=== PATIENT | female | born 2000 | race African-American/Black ===

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

== ENCOUNTER 2019-02-20 02:21 | Inpatient (IN) | payer OTHER ==
[2019-02-20 02:51] VITALS: BMI 24.9
[2019-02-20] MEDS ORDERED: Fentanyl 4 mcg/Bup 0.1% Cadd 100 ML ONE (03:19)
[2019-02-20 03:33] LABS: Hemoglobin 9.1 g/dL (12.0-16.0); Mean Corpuscular HGB CONC 33.5 g/dL (32.0-36.0); Mean Corpuscular Hemoglobin 29.1 pg (25.0-35.0); Mean Corpuscular Volume 86.7 fL (78.0-98.0); Mean Platelet Volume 6.7 fL (7.4-10.4); Platelet Count 399 thou/uL (130-400); RBC Distribution Width 12.9 % (11.5-14.5); Red Blood Cell (RBC) Count 3.13 mill/uL (4.00-5.20); White Blood Cell (WBC) Count 9.4 thou/uL (4.8-10.8)
[2019-02-20] MEDS ORDERED: Ondansetron PF 4 MG/2 ML Vial IVP PRN ×2 (03:59→07:12)
[2019-02-20] MEDS ORDERED: Butorphanol Tartrate 1 MG/ML VIAL SLOW IVP PRN (03:59)
[2019-02-20] MEDS ORDERED: Promethazine HCl 25 MG/ML VIAL IM PRN (03:59)
[2019-02-20] MEDS ORDERED: Acetaminophen 500 MG TAB PO PRN (03:59)
[2019-02-20] MEDS ORDERED: Lactated Ringer's 1,000 ML IV SCH (03:59)
[2019-02-20] MEDS ORDERED: Ibuprofen 800 MG TAB PO PRN (04:00)
[2019-02-20] MEDS ORDERED: Lidocaine 1% (PF) 30 ML VIAL SC PRN (04:00)
[2019-02-20] MEDS ORDERED: NS w/ Oxytocin 10 units 500 ML IV SCH ×2 (04:00)
[2019-02-20] MEDS ORDERED: Misoprostol 200 MCG TAB RC PRN (04:00)
[2019-02-20] MEDS ORDERED: HYDROcodone/Acetaminophen 5/325 mg Tablet PO PRN ×4 (04:00→07:12)
[2019-02-20] MEDS ORDERED: NS / Oxytocin 40 units/1000ml 1,000 ML IV SCH ×2 (04:00→07:12)
[2019-02-20] MEDS ORDERED: Lidocaine 1% (PF) 30 ML VIAL ONE (04:05)
[2019-02-20 04:10] LABS: Hep B Surf Ag Non-Reactive S/CO (NonReactive)
[2019-02-20] MEDS ORDERED: Carboprost 250 MCG/ML AMP ONE (04:59)
[2019-02-20] MEDS ORDERED: Methylergonovine 0.2 MG/ML VIAL ONE (04:59)
[2019-02-20] MEDS ORDERED: Azithromycin 500 MG VIAL ONE (05:05)
[2019-02-20] MEDS ORDERED: Ketamine 50 MG/ML (10ML VIAL) ONE (05:09)
[2019-02-20] MEDS ORDERED: Midazolam HCl 2 mg/2 ml Vial ONE (05:09)
[2019-02-20] MEDS ORDERED: CEFAZOLIN 2 GM in Premix Bag 1 BAG IVPB SCH (05:30)
[2019-02-20] MEDS ORDERED: Azithromycin 500 MG in Sodium Chloride 0.9% 250 ML 250 ML IVPB SCH (05:30)
[2019-02-20] MEDS ORDERED: Ondansetron HCl/PF 4 MG/2 ML Vial IVP PRN (05:39)
[2019-02-20] MEDS ORDERED: HYDROmorphone 2 MG/ML VIAL SLOW IVP PRN (05:39)
[2019-02-20] MEDS ORDERED: L&D-Morphine 4 MG/ML VIAL SLOW IVP PRN (05:39)
[2019-02-20] MEDS ORDERED: Meperidine HCl/PF 25 MG/ML VIAL SLOW IVP PRN (05:39)
[2019-02-20 05:45] LABS: Syphilis Antibody Nonreactive (Nonreactive); Syphilis Antibody Index 0.03 S/CO (<1.00 Non-Reactive)
[2019-02-20] MEDS ORDERED: Ketorolac Tromethamine 30 MG/ML VIAL IVP SCH (05:45)
[2019-02-20] MEDS ORDERED: Milk Of Magnesia 30 ML UDCUP PO PRN (07:12)
[2019-02-20] MEDS ORDERED: Bisacodyl 10 MG SUPP PR PRN (07:12)
[2019-02-20] MEDS: Docusate Calcium (SURFAK) 240 MG CAP PO SCH ×2 (11:44→21:28)
[2019-02-20] MEDS: Prenatal Vitamin 1 TAB PO SCH (11:44)
[2019-02-20] MEDS: Ferrous Sulfate 325 MG TAB PO SCH ×2 (11:44→18:49)
[2019-02-20] MEDS: Ibuprofen 800 MG TAB PO SCH ×2 (14:06→21:28)
[2019-02-20] MEDS: CEFAZOLIN 2 GM in Premix Bag 1 BAG IVPB SCH ×2 (14:06→22:21)
[2019-02-21] MEDS: Ibuprofen 800 MG TAB PO SCH ×3 (05:31→21:49)
[2019-02-21] MEDS: CEFAZOLIN 2 GM in Premix Bag 1 BAG IVPB SCH ×3 (05:31→21:49)
[2019-02-21 07:31] LABS: Hemoglobin 8.1 g/dL (12.0-16.0); Mean Corpuscular HGB CONC 33.9 g/dL (32.0-36.0); Mean Corpuscular Hemoglobin 29.2 pg (25.0-35.0); Mean Corpuscular Volume 85.9 fL (78.0-98.0); Mean Platelet Volume 6.7 fL (7.4-10.4); Platelet Count 397 thou/uL (130-400); Red Blood Cell (RBC) Count 2.76 mill/uL (4.00-5.20); White Blood Cell (WBC) Count 12.1 thou/uL (4.8-10.8)
[2019-02-21] MEDS: Ferrous Sulfate 325 MG TAB PO SCH ×2 (09:23→17:13)
[2019-02-21] MEDS: Prenatal Vitamin 1 TAB PO SCH (09:23)
[2019-02-21] MEDS: Docusate Calcium (SURFAK) 240 MG CAP PO SCH ×2 (09:23→21:49)
[2019-02-22] MEDS: Ibuprofen 800 MG TAB PO SCH (05:58)
[2019-02-22] MEDS: CEFAZOLIN 2 GM in Premix Bag 1 BAG IVPB SCH (05:58)
[2019-02-22] MEDS: Docusate Calcium (SURFAK) 240 MG CAP PO SCH (07:55)
[2019-02-22] MEDS: Ferrous Sulfate 325 MG TAB PO SCH (07:55)
[2019-02-22] MEDS: Prenatal Vitamin 1 TAB PO SCH (07:55)
[2019-02-22 12:00] VITALS: BP 117/74; TEMP 98
== END 2019-02-22 14:07 | disposition home or self-care (01) | DRG 807 ==
LOC: L&D/OP 02:21 → L&D 03:28 → 3SW 10:33
PROVIDERS: ADMIT Family Medicine; ATTEND Family Medicine
PROC: 10E0XZZ Delivery of Products of Conception, External Approach (ICD-10-PCS; principal; 2019-02-20)
PROC: 10D17Z9 Manual Extraction of Products of Conception, Retained, Via Natural or Artificial Opening (ICD-10-PCS; 2019-02-20)
PROC: 0HQ9XZZ Repair Perineum Skin, External Approach (ICD-10-PCS; 2019-02-20)
DX: O76 Abnormality in fetal heart rate and rhythm complicating labor and delivery (principal); Z37.0 Single live birth; O73.0 Retained placenta without hemorrhage; Z3A.37 37 weeks gestation of pregnancy; O62.3 Precipitate labor; O71.82 Other specified trauma to perineum and vulva
CPT/HCPCS: 36415; 51701; 85027; 86780; 86850; 86900; 86901; 87340; 88307; 99152; 99285; J0456; J0595; J2001; J2210; J2250; J3490; J7050